=== PATIENT | female | born 1975 | race Caucasian/White ===

== ENCOUNTER 2017-04-16 19:29 | Inpatient (IN) ==
[2017-04-16] MEDS ORDERED: Famotidine 20 MG/2 ML VIAL IVP PRN ×2 (19:34→23:32)
[2017-04-16] MEDS ORDERED: Naloxone 0.4 MG/ML INJ IVP PRN ×3 (19:34→23:32)
[2017-04-16 19:41] LABS: Basophils % 0.2 %; Eosinophils % 0.3 %; Hematocrit 38.3 % (35.3-44.9); Hemoglobin 12.7 g/dL (11.5-15.4); Immature Granulocytes % 0.3 % (0-4); Lymphocytes # 1.5 K/mcL (0.6-4.6); Lymphocytes % 12.5 %; Mean Corpuscular HGB Conc 33.2 g/dL (31.6-35.5); Mean Corpuscular Hemoglobin 31.4 pg (28.0-33.3); Mean Corpuscular Volume 94.8 fL (83.0-100.0); Mean Platelet Volume 9.7 fL (9.4-12.4); Monocytes # 0.7 K/mcL (0.0-1.3); Monocytes % 5.5 %; Neutrophils # 9.7 K/mcL (1.6-8.9); Platelet Count 182 K/mcL (140-400); Red Blood Count 4.04 M/mcL (3.82-4.97); Segmented Neutrophils % 81.2 %
[2017-04-16] MEDS ORDERED: Ringers Solution, Lactated 1,000 ML IVC SCH ×2 (19:45→23:32)
[2017-04-16] MEDS ORDERED: Dexamethasone 4 MG/ML VIAL ONE (20:05)
[2017-04-16] MEDS ORDERED: *HR* Oxytocin 10 UNIT/ML VIAL IM ONE ×2 (20:05)
[2017-04-16] MEDS ORDERED: *HR* Propofol 200 MG/20 ML VIAL IVP ONE (20:05)
[2017-04-16] MEDS ORDERED: Ringers Solution, Lactated 1,000 ML ONE (20:05)
[2017-04-16] MEDS ORDERED: *HR* HYDROmorphone (PF) 1 MG/ML SYRINGE ONE (20:05)
[2017-04-16] MEDS ORDERED: Ondansetron 4 MG/2 ML VIAL ONE (20:05)
[2017-04-16] MEDS ORDERED: *HR* Succinylcholine 200 MG/10 ML VIAL IVP ONE (20:05)
[2017-04-16] MEDS ORDERED: Ketorolac 30 MG/ML VIAL ONE (20:35)
--- NOTE | 2017-04-16 20:36 | OB/GYN Procedure Note ---
Section - Date of procedure: 04/16/17 Preop diagnosis: breech Post-op diagnosis: same (abruption) Procedure: primary low transverse (T-incision ) Surgeon: Uriel Davila Estimated blood loss (cc): 500 Body Make Up Artist: Edgard Gunter Anesthesiologist: Albert Emery Anesthesia Type: General section complications: none Specimens: Placenta - (s) Infant A Infant Delivery Date: 04/16/17 Infant Delivery Time: 19:43 Presentation: footling breech Gender: Female Viability: Viable Pounds: 6 Ounces: 5 at 1 minute: 2 at 5 minutes: 8 Specimens collected: arterial cord gases Placenta: complete extraction - Narrative Narrative: [facility] completely dilated with double footling breech. Decision was made to proceed with emergent section. Patient was taken to the operating room and prepped and draped in usual manner. After emergent timeout was obtained general anesthesia was obtained. The abdomen was entered in standard Maylard incision. The Vidal retractor was placed. The peritoneum overlying the lower uterine segment was incised in the U-shaped fashion. Uterine cavity was entered sharply. Fluid was blood-tinged consistent with an abruption. The legs buttocks and torso and arms were delivered. I made a T incision to deliver the baby's head. The umbilical cord was doubly clamped and cut and the infant was handed to nursery staff for further evaluation. The placenta was removed and sent to pathology for analysis. Uterus was closed with 0 Monocryl in a single layer incorporating the T part of the incision. After assurance hemostasis, the abdomen was closed in standard fashion using 0 Vicryl on the fascia and geoffrey on the skin. Patient did well was taken to recovery room in satisfactory condition. Counts were correct.
--- NOTE | 2017-04-16 20:40 | Anesthesia Evaluation PreOp ---
Date of Encounter: 04/16/17 Time of Encounter: 19:23 - Past History Planned Operation: primary c section, emergency Cardiac History: Denies any Significant Hx Pulmonary History: Denies Any Significant HX BANQUET CAPTAIN History: Denies Any Significant HX Other Medical History: Denies Any Significant HX Anesthesia History: No Prior Anesthetic Complications : Yes Alcohol Use: none Drug use: none Medications and Allergies 3 Allergy/AdvReac Type Severity Reaction Status Date / Time No Known Allergies Allergy Verified 04/16/17 19:36 - Meds/Allergy Pre-op Review Medications Reviewed: Yes Allergies Reviewed: Yes Beta Blockers on Current Med List: No Anesthesia Results - Labs 04/16/17 19:33 Anesthesia Exam maternal VSS and FHTs 130s. Weight: 63 NPO (# of Hours): 7.5 Pain Scale: 10 Pain Scale Used: Numeric (1 - 10) - HEENT Pupil (Motor): Pupils equal, EOMI Mallampati: II Teeth: Poor dentition Denture Type: Lower: Complete Oral Opening: Greater than 3 - BANQUET CAPTAIN LOC: Oriented BANQUET CAPTAIN Motor: Normal RUE, Normal LUE, Normal RLE, Normal LLE, Normal Face BANQUET CAPTAIN Sensory: Normal: RUE, LUE, RLE, LLE, Face - Cardiac Rhythm: Regular - Pulmonary Breath Sounds: bilateral Clear Respiratory Effort: Symmetrical Anesthesia Assess/Plan ASA Score: 2, E Modified Dalton Scale for Level of Consciousness: Cooperative, oriented, and tranquil Anesthetic Plan: General Monitoring Plan: Standard Monitors Recovery Plan: PACU
[2017-04-16] MEDS ORDERED: Ondansetron 4 MG/2 ML VIAL IVP ONE (20:41)
[2017-04-16] MEDS ORDERED: *HR* Promethazine 25 MG/ML VIAL IVP PRN (20:41)
[2017-04-16] MEDS ORDERED: Acetaminophen IV 1,000 MG/100 ML INFUS..BTL IVPB ONE (20:42)
--- NOTE | 2017-04-16 21:06 | OB/GYN History & Physical ---
Date of Encounter: 04/19/17 Time of Encounter: 18:00 Assessment and Plan (1) Footling breech presentation Status: Acute Admit to labor and delivery. Due to footling breech presentation and complete dilation pt to be prepped for stat . Qualifiers: Fetus number: single or unspecified fetus Qualified Code(s): O32.8XX0 - Maternal care for other malpresentation of fetus, not applicable or unspecified (2) 37 weeks gestation of Status: Acute History of Present Illness Chief complaint: Footling Breech HPI: Ms. Vega is a 41 year old female, , at 37 weeks, presents to labor and delivery completed dilated with footling breech presentation. Labs: Rubella immune. Pt reports having had chicken pox as a teenager. Blood type AB positive. Past Med Surg Social Fam HX - Social History Alcohol use: none Drug use: none Obstetrical History - Pregnancies : 9 Para: 7 Medications and Allergies Docusate [Colace] 100 mg PO BID PRN #60 04/17/17 [Rx] Ferrous Sulfate 325 mg PO DAILY #30 tab 04/17/17 [Rx] Ibuprofen [Motrin] 600 mg PO Q6HR PRN #60 tab 04/17/17 [Rx] 3 Allergy/AdvReac Type Severity Reaction Status Date / Time No Known Allergies Allergy Verified 04/16/17 19:36 Review of System OB - Genitourinary Genitourinary: amenorrhea - Menstruation Menstruation: amenorrhea Exam - Constitutional Constitutional: well developed, no acute distress, thin - Cardiovascular Cardiovascular exam: +S1, +S2 - Breasts Breast: bilateral: normal - Cervix Dilation: 10 Effacement: 100 Results Result Diagrams: 04/17/17 07:05 Abnormal lab results WBC 11.9 K/mcL (4.3-11.1) H 04/16/17 19:33 Neutrophils # 9.7 K/mcL (1.6-8.9) H 04/16/17 19:33 All other labs normal.
--- NOTE | 2017-04-16 22:05 | Anesthesia Evaluation Post Op ---
Date of Encounter: 04/16/17 Time of Encounter: 22:04 - Vital Signs Vital Signs: VSS - Lungs Lungs: Clear Ascult./Percussion - Airway Airway: Non-obstructed - Cardiovascular Regular Rate - Mental Status Mental Status: Alert & Oriented, Answers Appropriately - Pain Pain Scale: 4 Pain Scale used: Numeric (1 - 10) - Nausea Vomiting Nausea Vomiting: Not Present - Hydration Hydration: NPO, Petty catheter - Discharge PostOp Status: Transfer Patient to floor
[2017-04-16] MEDS ORDERED: Sennosides 8.6 MG TABLET PO PRN (23:32)
[2017-04-16] MEDS ORDERED: *HR* HYDROmorphone (PF) 1 MG/ML SYRINGE IVP PRN (23:32)
[2017-04-16] MEDS ORDERED: *HR* Morphine 2 MG/ML SYRINGE IVP PRN ×2 (23:32)
[2017-04-16] MEDS ORDERED: Simethicone 80 MG TAB.CHEW PO PRN (23:32)
[2017-04-16] MEDS ORDERED: Ondansetron 4 MG/2 ML VIAL IVP PRN (23:32)
[2017-04-16] MEDS ORDERED: *HR* OxyCODONE/APAP 5/325 TABLET PO PRN (23:32)
[2017-04-16] MEDS ORDERED: Metoclopramide 10 MG/2 ML VIAL IVP PRN (23:32)
[2017-04-16] MEDS ORDERED: Oxytocin 20 units/ LR 1000 mL 20 UNIT/1,000 ML BAG IVC SCH (23:32)
[2017-04-17] MEDS: Ibuprofen 600 MG TABLET PO PRN ×2 (05:19→21:06)
[2017-04-17 07:30] LABS: Basophils % 0.1 %; Eosinophils % 0.1 %; Hematocrit 32.2 % (35.3-44.9); Immature Granulocytes % 0.3 % (0-4); Lymphocytes # 0.7 K/mcL (0.6-4.6); Lymphocytes % 4.9 %; Mean Corpuscular HGB Conc 32.9 g/dL (31.6-35.5); Mean Corpuscular Hemoglobin 31.4 pg (28.0-33.3); Mean Corpuscular Volume 95.3 fL (83.0-100.0); Mean Platelet Volume 9.8 fL (9.4-12.4); Monocytes # 0.6 K/mcL (0.0-1.3); Monocytes % 4.1 %; Neutrophils # 12.8 K/mcL (1.6-8.9); Platelet Count 165 K/mcL (140-400); Red Blood Count 3.38 M/mcL (3.82-4.97); Red Cell Distribution Width 14.1 % (11.5-14.5); Segmented Neutrophils % 90.5 %
[2017-04-17 07:32] LABS: Hemoglobin 10.6 g/dL (11.5-15.4)
[2017-04-17] MEDS ORDERED: cefOXitin 2,000 MG in D5% in Water (Mini-Bag+) 100 ML IVPB ONE (08:46)
[2017-04-17] MEDS ORDERED: MetroNIDAZOLE 500 MG/100 ML 500 MG/100 ML BAG IVPB ONE (08:48)
[2017-04-17] MEDS ORDERED: Prenatal Vit/FA 1 EACH TABLET PO SCH (09:00)
--- NOTE | 2017-04-17 09:11 | Discharge Summary ---
Date of Encounter: 04/17/17 Time of Encounter: 09:31 - Discharge Diagnosis (1) 37 weeks gestation of Priority: Secondary Status: Acute (2) Footling breech presentation Priority: Primary Status: Acute Qualifiers: Fetus number: single or unspecified fetus Qualified Code(s): O32.8XX0 - Maternal care for other malpresentation of fetus, not applicable or unspecified - Discharge Medications Prescriptions: Ibuprofen [Motrin] 600 mg PO Q6HR PRN #60 tab PRN Reason: Cramping Docusate [Colace] 100 mg PO BID PRN #60 PRN Reason: Constipation Ferrous Sulfate 325 mg PO DAILY #30 tab Home Medications: Docusate [Colace] 100 mg PO BID PRN #60 04/17/17 [Rx] Ferrous Sulfate 325 mg PO DAILY #30 tab 04/17/17 [Rx] Ibuprofen [Motrin] 600 mg PO Q6HR PRN #60 tab 04/17/17 [Rx] Allergies/Adverse Reactions: 3 Allergy/AdvReac Type Severity Reaction Status Date / Time No Known Allergies Allergy Verified 04/16/17 19:36 Data Procedures and tests throughout hospitalization: Laboratory Tests 04/16/17 04/17/17 19:33 07:05 WBC 11.9 H 14.2 H RBC 4.04 3.38 L Hgb 12.7 10.6 L D Hct 38.3 32.2 L MCV 94.8 95.3 MCH 31.4 31.4 MCHC 33.2 32.9 RDW 14.0 14.1 Plt Count 182 165 MPV 9.7 9.8 Immature Gran % 0.3 0.3 Seg Neutrophils % 81.2 90.5 Lymphocytes % 12.5 4.9 Monocytes % 5.5 4.1 Eosinophils % 0.3 0.1 Basophils % 0.2 0.1 Neutrophils # 9.7 H 12.8 H Lymphocytes # 1.5 0.7 Monocytes # 0.7 0.6 Eosinophils # 0.0 0.0 Basophils # 0.0 0.0 Labs on day of discharge: Labs from last 24 hours 04/17/17 04/16/17 07:05 19:33 WBC 14.2 H 11.9 H RBC 3.38 L 4.04 Hgb 10.6 L D 12.7 Hct 32.2 L 38.3 MCV 95.3 94.8 MCH 31.4 31.4 MCHC 32.9 33.2 RDW 14.1 14.0 Plt Count 165 182 MPV 9.8 9.7 Immature Gran % 0.3 0.3 Seg Neutrophils % 90.5 81.2 Lymphocytes % 4.9 12.5 Monocytes % 4.1 5.5 Eosinophils % 0.1 0.3 Basophils % 0.1 0.2 Neutrophils # 12.8 H 9.7 H Lymphocytes # 0.7 1.5 Monocytes # 0.6 0.7 Eosinophils # 0.0 0.0 Basophils # 0.0 0.0 Date of admission: 04/16/17 19:29 Primary care physician: PCP NONE Discharging clinician: Meghann Healy Anticipated date of discharge: 04/17/17 - Patient Status Disposition: Home, Self-Care Condition: Good Functional capacity at discharge: independent ambulation Overall status at discharge: patient is progressing back to baseline - Discharge Instructions Follow Up With: NONE,PCP [Primary Care Provider] - Additional Instructions: Perineal Care: Always wipe front to back Change your pad frequently Use your ap bottle with warm water and spray front to back Do not douche, use tampons, have sexual intercourse or put anything in your vagina for 4-6 weeks after delivery Bleeding: Vaginal bleeding can last up to 6 weeks Your menstrual period may return as early as 6 weeks after you are discharged from the hospital Mitali/Stitches Care: Care Stitches will dissolve on their own If you have mitali, they will need to be removed in the doctors office within 5-7 days. You may shower with stitches or mitali Drip plan or soapy water over the incision to clean. Pat dry gently with a clean towel. Make sure you completely dry under the skin folds DO NOT USE powders, lotions, rubbing alcohol or hydrogen peroxide on or around your incision. This will slow your wound healing It is normal to have soreness, burning, tingling, itchiness and/or numbness as your incision heals Activity: Rest frequently Do not lift anything heavier than a gallon of milk, up to 10-15 pounds No driving for 1-2 weeks for Vaginal delivery No driving for 2-4 weeks for delivery Take stairs slowly, one at a time Gradually increase your daily activity until you are back to your normal routine Do not exercise until you have had your follow-up appointment Bathing: Take a shower daily Do not take a tub bath for the first 4 weeks Diet: Drink plenty of water and fruit juices Eat a well-balanced diet with foods high in fiber such as fruits and vegetables Depression: Your hormones have a major impact on your feelings and emotions. Hormone imbalance may cause changes in your mood, creating unfamiliar thoughts and actions. Support is available to help you understand and cope with these feelings and mood changes. If you answer yes to any of the following questions, please call your health care provider: Are you having trouble sleeping? Are you feeling isolated? Have you lost your appetite? Are you having thoughts of hurting yourself or others? WARNING SIGNS: Heavy bleeding from the vagina (blood is bright red and soaks a sanitary pad in an hour or less.) Passing a blood clot larger than your fist Discharge from the vagina that has a bad odor Temperature over 100.4 F, or if you feel cold and have chills An episiotomy site that is warm, swollen or oozing. Use a mirror if needed Urination (pee) that is painful, very red and swollen or leaking fluid An incision that is painful, very red and swollen and leaking fluid An incision that has come open Breasts that are painful or full with flu like symptoms Redness, warmth or swelling in the calf of your leg Trouble breathing, dizziness, visual disturbance or faintness *Notify your health care provider immediately or go to the nearest Emergency Room if you experience any of the above signs.* To contact the nurses station 24 hours a day, For non-urgent, routine questions, please call the office at - Diet and Activity Activity: resume usual activities as tolerated Diet: advance to your usual diet Hospital Course VAULT TELLER Reason for admission: other (Labor with footling breech) Hospital course: Jenifer Cooper presented at 37 weeks on 04/16/17 completely dilated with footling breech from [facility]. Emergent was performed for nonreassuring heart tones. Operation was performed under general anesthesia by Dr. Davila without complication. at 1 minute was 2, but this improved to 8 at 5 minutes. The patient continued to do well and was discharged in stable condition. Time Attestation: Total time spent providing and/or coordinating discharge services: Time Spent: Less than 30 minutes Exam - Constitutional Vitals: Temp Pulse Resp BP Pulse Ox 98.4 F 74 12 113/71 97 04/17/17 07:50 04/17/17 07:52 04/17/17 07:52 04/17/17 07:50 04/17/17 07:50 General appearance IM: cooperative, pleasant, no acute distress - Respiratory Respiratory exam: Present: CTAB - Cardiovascular Cardiovascular exam IM: Present: RRR, +S1, +S2 - GI/Abdominal GI/Abdominal exam IM: normal bowel sounds, tenderness (expected postoperative tenderness) Incision: normal, dressed - Uterine Tone: Firm - Extremities Exam Extremities exam IM: Present: normal inspection. Absent: pedal edema - Neurological Exam Neurological exam: reflexes normal - VTE Documentation of Mechanical Device: Intermittent pneumatic compression device - Attending Attestation I examined this patient and my medical decision-making was reviewed with the Resident Physician. I agree with the documented findings, disposition and treatment plan as described except to the extent set forth below.
[2017-04-17 21:32] VITALS: BP 114/79
== END 2017-04-17 21:35 | disposition home or self-care (01) | DRG 765 ==
LOC: 1NENULAB 19:29 → 1NENUOBS 23:20
PROVIDERS: ADMIT Obstetrics & Gynecology; ATTEND Obstetrics & Gynecology